=== PATIENT | female | born 1980 | race American Indian/Alaskan Native ===

== ENCOUNTER 2017-04-04 08:53 | Emergency (ER) | payer OTHER ==
[2017-04-04 09:11] VITALS: TEMP 99.8; O2SAT 100
--- NOTE | 2017-04-04 09:18 | ED PDOC ---
Arrival/HPI - General Chief Complaint: Flu-like Symptoms Time Seen by Provider: 04/04/17 09:05 Historian: Patient - History of Present Illness Narrative History of Present Illness (Text): 04/04/17 09:18 37 year old female, who denies any past medical history, presents to the emergency department complaining of waking up with a 103 fever associated with URI symptoms, generalized myalgias, and nonproductive cough. She denies any recent travel and also denies smoke, alcohol, or drug use. Patient denies any chills, chest pain, shortness of breath, nausea, vomiting, diarrhea, urinary symptoms, back pain, neck pain, rash, headache, dizziness, or any other complaints. PMD Dr. Celine Mathur Time/Duration: Other (1-2 hours ago) Symptom Onset: Sudden Symptom Course: Unchanged Activities at Onset: Rest Context: Home Associated Symptoms (Text): 04/04/17 10:05 Patient woke up this morning with a 103 fever and chills. Generalized myalgias and arthralgias with URI symptoms and a very mild nonproductive cough. No vomiting or diarrhea. No travel. She has not taken anything for the fever. Past Medical History - Provider Review Nursing Documentation Reviewed: Yes - Infectious Disease Hx of Infectious Diseases: None - Cardiac Hx Cardiac Disorders: No - Pulmonary Hx Respiratory Disorders: No - Neurological Hx Neurological Disorder: No - HEENT Hx HEENT Disorder: No - Renal Hx Renal Disorder: No - Endocrine/Metabolic Hx Endocrine Disorders: No - Hematological/Oncological Hx Blood Disorders: Yes Hx Sickle Cell Trait: Yes - Integumentary Hx Dermatological Disorder: No - Musculoskeletal/Rheumatological Hx Musculoskeletal Disorders: No - Gastrointestinal Hx Gastrointestinal Disorders: No - Genitourinary/Gynecological Hx Reproductive Disorders: Yes Other/Comment: HX: CERVICAL DYSPLAGIA - Psychiatric Hx Psychophysiologic Disorder: No Hx Substance Use: No - Surgical History Other/Comment: cervix - Anesthesia Hx Anesthesia: No Family/Social History - Physician Review Nursing Documentation Reviewed: Yes Family/Social History: No Known Family HX Smoking Status: Never Smoked Hx Alcohol Use: No Hx Substance Use: No Allergies/Home Meds Allergies/Adverse Reactions: Allergies No Known Allergies Allergy (Verified 04/04/17 09:12) Home Medications: Home Meds Medication Instructions Recorded Confirmed No Known Home Med 03/09/16 04/04/17 Review of Systems - Physician Review All systems were reviewed & negative as marked: Yes - Review of Systems Constitutional: Fatigue, Fevers. absent: Other (Chills) Respiratory: Cough. absent: SOB, Sputum, Wheezing Cardiovascular: absent: Chest Pain, Palpitations, Syncope Gastrointestinal: absent: Abdominal Pain, Diarrhea, Nausea, Vomiting Genitourinary Female: absent: Dysuria, Frequency, Hematuria Musculoskeletal: Myalgias. absent: Back Pain, Neck Pain Skin: absent: Rash Neurological: absent: Headache, Dizziness, Focal Weakness Physical Exam Vital Signs Reviewed: Yes Vital Signs Temp Pulse Resp BP Pulse Ox 04/04/17 10:15 99 H 16 140/66 100 04/04/17 09:24 99.8 F H 04/04/17 09:11 99.8 F H 105 H 18 143/77 100 Temperature: Afebrile Blood Pressure: Normal Pulse: Tachycardic Respiratory Rate: Normal Appearance: Positive for: Well-Appearing, Non-Toxic, Comfortable Pain Distress: None Mental Status: Positive for: Alert and Oriented X 3 - Systems Exam Head: Present: Atraumatic, Normocephalic Pupils: Present: PERRL Extroacular Muscles: Present: EOMI Conjunctiva: Present: Normal Ears: Present: NORMAL TM, Normal Canal. No: Erythema, TM Bulging Mouth: Present: Moist Mucous Membranes Pharnyx: No: ERYTHEMA, EXUDATE, TONSILS ENLARGED Neck: Present: Normal Range of Motion Respiratory/Chest: Present: Clear to Auscultation, Good Air Exchange. No: Respiratory Distress, Accessory Muscle Use Cardiovascular: Present: Regular Rate and Rhythm, Normal S1, S2. No: Murmurs Abdomen: Present: Normal Bowel Sounds. No: Tenderness, Distention, Peritoneal Signs Back: Present: Normal Inspection Upper Extremity: Present: Normal Inspection. No: Cyanosis, Edema Lower Extremity: Present: Normal Inspection. No: Edema Neurological: Present: GCS=15, CN II-XII Intact, Speech Normal, Motor Func Grossly Intact Skin: Present: Warm, Dry, Normal Color. No: Rashes Psychiatric: Present: Alert, Oriented x 3, Normal Insight, Normal Concentration Medical Decision Making ED Course and Treatment: 04/04/17 09:18 Impression: 27 year old female presents complaining of waking up with a 103 fever associated with URI symptoms, generalized myalgias, and nonproductive cough. Plan: -- Tylenol -- Influenza A B -- Reassess and disposition Progress Notes: 04/04/17 10:06 Influenza is negative. Patient will be treated symptomatically. Follow-up with PMD. Follow-up in the ER as needed. - Lab Interpretations Lab Results: Lab Results 04/04/17 09:20: Influenza Typ A,B (EIA) Negative for flu a/b - Medication Orders Current Medication Orders: Discontinued Medications Acetaminophen (Tylenol 325mg Tab) 975 mg PO STAT STA Stop: 04/04/17 09:17 Last Admin: 04/04/17 09:24 Dose: 975 mg MAR Pain/Vitals Document 04/04/17 09:24 SE (Rec: 04/04/17 09:24 SE [id number]) Sleep Is patient sleeping during reassessment? No Presence of Pain Presence of Pain Yes Pain Scale Used Pain Scale Used Numeric Vitals Temperature (97.6 F-99.6 F) 99.8 F Temperature Source Oral Disposition/Present on Arrival - Present on Arrival Any Indicators Present on Arrival: No History of DVT/PE: No History of Uncontrolled Diabetes: No Urinary Catheter: No History of Decub. Ulcer: No History Surgical Site Infection Following: None - Disposition Have Diagnosis and Disposition been Completed?: Yes Diagnosis: Fever, Viral syndrome Disposition: HOME/ ROUTINE Disposition Time: 10:06 Patient Plan: Discharge Condition: GOOD Discharge Instructions (ExitCare): Fever in Adults (ED), Viral Syndrome (ED) Additional Instructions: Symptomatic treatment. Tylenol or Advil as directed on bottle as needed. Follow- up with PMD. Follow up in ER as needed. Referrals: Rocío Mathur MD [Primary Care Provider] - Follow up with primary Forms: [employer] (Chinese), WORK NOTE
[2017-04-04 10:20] VITALS: BP 140/66; PULSE 99; RESP 16
== END 2017-04-04 10:17 | disposition home or self-care (01) ==
LOC: ED 08:53
DX: B34.9 Viral infection, unspecified (principal); R50.9 Fever, unspecified; D57.3 Sickle-cell trait

== ENCOUNTER 2017-11-15 12:44 | Emergency (ER) | payer OTHER ==
[2017-11-15 13:13] VITALS: TEMP 98.1; O2SAT 99
--- NOTE | 2017-11-15 15:24 | ED PDOC ---
Arrival/HPI - General Chief Complaint: Back Pain Time Seen by Provider: 11/15/17 14:46 Historian: Patient - History of Present Illness Narrative History of Present Illness (Text): 11/15/17 15:19 37yr old female presents today with left sided back/buttock pain. pt states pain started last night when she bent over to pick something up. pt states she took tylenol and motrin without improvement in the pain. pt states the pain radiates into the left leg. pt denies abdominal pain. no fever/chills. no urinary symptoms. She denies bladder or bowel incontinence. Patient denies saddle paresthesias. no cp or sob. no other complaints. pt denies any prior hx of back pain. pt states back pain is worse with any movement. Past Medical History - Provider Review Nursing Documentation Reviewed: Yes - Travel History Have you recently traveled outside [place] w/in the past 3 mons?: No - Infectious Disease Hx of Infectious Diseases: None - Reproductive Menopause: No - Cardiac Hx Cardiac Disorders: No - Pulmonary Hx Respiratory Disorders: No - Neurological Hx Neurological Disorder: No - HEENT Hx HEENT Disorder: No - Renal Hx Renal Disorder: No - Endocrine/Metabolic Hx Endocrine Disorders: No - Hematological/Oncological Hx Blood Disorders: Yes Hx Sickle Cell Trait: Yes - Integumentary Hx Dermatological Disorder: No - Musculoskeletal/Rheumatological Hx Musculoskeletal Disorders: No - Gastrointestinal Hx Gastrointestinal Disorders: No - Genitourinary/Gynecological Hx Reproductive Disorders: Yes Other/Comment: HX: CERVICAL DYSPLAGIA - Psychiatric Hx Psychophysiologic Disorder: No Hx Substance Use: No - Surgical History Other/Comment: cervix - Anesthesia Hx Anesthesia: No Family/Social History - Physician Review Nursing Documentation Reviewed: Yes Family/Social History: Unknown Family HX Smoking Status: Never Smoked Hx Alcohol Use: No Hx Substance Use: No Allergies/Home Meds Allergies/Adverse Reactions: Allergies No Known Allergies Allergy (Verified 04/04/17 09:12) Review of Systems - Review of Systems Constitutional: absent: Fatigue, Fevers Respiratory: absent: SOB, Cough Cardiovascular: absent: Chest Pain, Palpitations Gastrointestinal: absent: Abdominal Pain, Nausea, Vomiting Genitourinary Female: absent: Dysuria, Frequency, Hematuria Musculoskeletal: Arthralgias, Back Pain. absent: Neck Pain Skin: absent: Rash, Pruritis Neurological: absent: Headache, Dizziness Psychiatric: absent: Anxiety, Depression Physical Exam Vital Signs Reviewed: Yes Vital Signs Temp Pulse Resp BP Pulse Ox 11/15/17 13:09 98.1 F 99 H 18 139/82 99 Temperature: Afebrile Blood Pressure: Normal Pulse: Regular Respiratory Rate: Normal Appearance: Positive for: Well-Appearing, Non-Toxic, Comfortable Pain Distress: None Mental Status: Positive for: Alert and Oriented X 3 - Systems Exam Head: Present: Atraumatic Mouth: Present: Moist Mucous Membranes Neck: Present: Normal Range of Motion Respiratory/Chest: Present: Clear to Auscultation, Good Air Exchange. No: Respiratory Distress, Accessory Muscle Use Cardiovascular: Present: Regular Rate and Rhythm, Normal S1, S2. No: Murmurs Abdomen: No: Tenderness, Distention, Rebound, Guarding Back: Present: Normal Inspection, Pain with Leg Raise, Other (+ ttp over left sciatic foramen; stiff ROM of back). No: CVA Tenderness, Midline Tenderness, Paraspinal Tenderness Upper Extremity: Present: Normal ROM Lower Extremity: Present: Normal ROM Neurological: Present: GCS=15, Speech Normal Skin: Present: Warm, Dry, Normal Color. No: Rashes Psychiatric: Present: Alert, Oriented x 3 Medical Decision Making ED Course and Treatment: 11/15/17 15:25 Patient nontoxic well-appearing in no distress with stable vital signs. pt with sciatic foramen tenderness and back pain radiating into the left leg; likely sciatica. Toradol, Flexeril Patient reassessment: PT is feeling minimally better with medications; states pain went from 10 to 6. will add percocet and xray lumbar spine. xray LS spine; FINDINGS: BONES: Alignment appears satisfactory. No listhesis. No acute displaced fracture identified. Mild degenerative changes including small anterior osteophyte formation. Facet hypertrophy. DISC SPACES: Unremarkable. OTHER FINDINGS: Moderate constipation. Pelvic calcifications, likely phleboliths. IMPRESSION: Degenerative changes. No acute displaced fracture or subluxation identified. pt reassessment; Feeling better with medications ambulating with a steady gait. Muscle strength 5 out of 5 bilaterally. I advised to followup with the orthopedist within the next 2 days. Advised immediate return if symptoms worsen persist or if new concerning symptoms develop advised patient of constipation and need for increasing fluids and increasing fiber. Will discharge patient home with Colace capsules. Patient verbalizes understanding of discharge instructions and need for immediate followup. all aspects of this case were discussed the attending of record. Impression: Back pain Motrin every 6 hours as needed for pain Flexeril one tablet every 8 hours as needed for muscle spasms: May cause drowsiness percocet; one tablet every 6 hours as needed for moderate to severe pain: May cause drowsiness Colace; 1 capsule twice daily Increase fluids, increase fiber. Followup with the orthopedist within the next 2 days Followup with primary care physician within the next 2 days Return if symptoms worsen persist or if new symptoms develop - RAD Interpretation Radiology Orders: 11/15/17 16:34 LS SPINE WITH OBL > 18 YRS OLD [RAD] Stat - Medication Orders Current Medication Orders: Discontinued Medications Cyclobenzaprine HCl (Flexeril) 10 mg PO STAT STA Stop: 11/15/17 14:47 Last Admin: 11/15/17 15:37 Dose: 10 mg Ketorolac Tromethamine (Toradol) 60 mg IM STAT STA Stop: 11/15/17 14:47 Last Admin: 11/15/17 15:37 Dose: 60 mg MAR Pain Assessment Document 11/15/17 15:37 CORY (Rec: 11/15/17 15:38 COYR [id number]) Pain Reassessment Is this a pain reassessment? Yes Presence of Pain Presence of Pain Yes Pain Scale Used Pain Scale Used Numeric Location Left, Right or Bilateral Left Upper or Lower Lower Pain Location Body Site Back Description Description Sharp Intensity of Pain at present 10 IM Administration Charges Document 11/15/17 15:37 CORY (Rec: 11/15/17 15:38 CORY [id number]) Injection Site MAR Injection Site Left Deltoid Charges for Administration # of IM Administrations 1 Oxycodone/Acetaminophen (Percocet 5/325 Mg Tab) 1 tab PO STAT STA Stop: 11/15/17 16:35 Last Admin: 11/15/17 16:46 Dose: 1 tab MAR Pain Assessment Document 11/15/17 16:46 CORY (Rec: 11/15/17 16:47 CORY [id number]) Pain Reassessment Is this a pain reassessment? Yes Presence of Pain Presence of Pain Yes Pain Scale Used Pain Scale Used Numeric Location Upper or Lower Lower Pain Location Body Site Back Description Description Sharp Intensity of Pain at present 10 Disposition/Present on Arrival - Present on Arrival Any Indicators Present on Arrival: No History of DVT/PE: No History of Uncontrolled Diabetes: No Urinary Catheter: No History of Decub. Ulcer: No History Surgical Site Infection Following: None - Disposition Have Diagnosis and Disposition been Completed?: Yes Diagnosis: Back pain Disposition: HOME/ ROUTINE Disposition Time: 15:26 Patient Plan: Discharge Condition: GOOD Discharge Instructions (ExitCare): Low Back Pain (DC) Additional Instructions: Motrin every 6 hours as needed for pain Flexeril one tablet every 8 hours as needed for muscle spasms: May cause drowsiness percocet; one tablet every 6 hours as needed for moderate to severe pain: May cause drowsiness Colace; 1 capsule twice daily Increase fluids, increase fiber. Followup with the orthopedist within the next 2 days Followup with primary care physician within the next 2 days Return if symptoms worsen persist or if new symptoms develop Prescriptions: Cyclobenzaprine [Cyclobenzaprine HCl] 10 mg PO Q8 #10 tab Docusate [Colace] 100 mg PO BID #30 cap Ibuprofen [Motrin] 600 mg PO Q6H PRN #20 tab PRN Reason: pain/fever reduction oxyCODONE/Acetaminophen [Percocet 5/325 mg Tab] 1 tab PO Q6H PRN #6 tab PRN Reason: moderate to severe pain Referrals: Rocío Mathur MD [Primary Care Provider] - Follow up with primary Visco,Familia Parikh MD [Staff Provider] - Follow up with primary Forms: [employer] (Lithuanian), WORK NOTE
[2017-11-15] MEDS ORDERED: Oxycodone/Acetaminophen 5/325 mg Tab PO STA (16:34)
--- NOTE | 2017-11-15 17:29 | RAD ---
Date of service: 11/15/2017 PROCEDURE: Radiographs of the Lumbar Spine. HISTORY: back pain COMPARISON: None available. FINDINGS: BONES: Alignment appears satisfactory. No listhesis. No acute displaced fracture identified. Mild degenerative changes including small anterior osteophyte formation. Facet hypertrophy. DISC SPACES: Unremarkable. OTHER FINDINGS: Moderate constipation. Pelvic calcifications, likely phleboliths. IMPRESSION: Degenerative changes. No acute displaced fracture or subluxation identified.
[2017-11-15 17:56] VITALS: BP 142/84; PULSE 80; RESP 16
== END 2017-11-15 17:55 | disposition home or self-care (01) ==
LOC: ED 12:44
DX: M54.5 Low back pain (principal)
CPT/HCPCS: 72110; 96372; 99281; J1885

== ENCOUNTER 2018-02-21 09:39 | Inpatient (IN) | payer BC ==
[2018-02-21] MEDS ORDERED: Sodium Chloride 0.9% 1,000 ML IV STA (10:02)
--- NOTE | 2018-02-21 10:02 | ED PDOC ---
Arrival/HPI - General Chief Complaint: Chest Pain Time Seen by Provider: 02/21/18 09:45 Historian: Patient - History of Present Illness Narrative History of Present Illness (Text): 02/21/18 10:28 37 y/o female with no significant PMH presents to the ED c/o chest pain x 1 day. Chest pain is a substernal pressure worse with coughing and deep breathing. Associated sudden onset of generalized body aches, tactile fever, chills, pro ductive cough of yellow sputum and occasional blood, and headache yesterday. No OCP use, recent travel/immobilization/h/o DVT, PE, or malignancy. Denies flu shot. Positive sick contacts at work. Currently menstruating. Denies vision changes, dizziness, abdominal pain, N/V, SOB, urinary symptoms, calf pain, calf swelling, or any other associated symptoms. Past Medical History - Provider Review Nursing Documentation Reviewed: Yes - Infectious Disease Hx of Infectious Diseases: None - Reproductive Menopause: No - Cardiac Hx Cardiac Disorders: No - Pulmonary Hx Respiratory Disorders: No - Neurological Hx Neurological Disorder: No - HEENT Hx HEENT Disorder: No - Renal Hx Renal Disorder: No - Endocrine/Metabolic Hx Endocrine Disorders: No - Hematological/Oncological Hx Blood Disorders: Yes Hx Sickle Cell Trait: Yes - Integumentary Hx Dermatological Disorder: No - Musculoskeletal/Rheumatological Hx Musculoskeletal Disorders: No - Gastrointestinal Hx Gastrointestinal Disorders: No - Genitourinary/Gynecological Hx Reproductive Disorders: Yes Other/Comment: HX: CERVICAL DYSPLAGIA - Psychiatric Hx Psychophysiologic Disorder: No Hx Substance Use: No - Surgical History Other/Comment: cervix - Anesthesia Hx Anesthesia: No Family/Social History - Physician Review Nursing Documentation Reviewed: Yes Family/Social History: No Known Family HX Smoking Status: Never Smoked Hx Alcohol Use: No Hx Substance Use: No Allergies/Home Meds Allergies/Adverse Reactions: Allergies No Known Allergies Allergy (Verified 02/21/18 13:04) Home Medications: Home Meds Medication Instructions Recorded Confirmed No Known Home Med 02/21/18 02/21/18 Review of Systems - Physician Review All systems were reviewed & negative as marked: Yes - Review of Systems Constitutional: Fevers Eyes: Normal. absent: Vision Changes, Photophobia ENT: Normal. absent: Sore Throat, Sinus Congestion Respiratory: Cough, Sputum, Other (Hemoptysis). absent: SOB Cardiovascular: Chest Pain. absent: Palpitations, Calf Pain, Syncope Gastrointestinal: Normal. absent: Abdominal Pain, Constipation, Diarrhea, Nausea, Vomiting, Appetite Changes Genitourinary Female: Normal. absent: Dysuria, Frequency, Vaginal Bleeding, Vaginal Discharge Musculoskeletal: Normal. absent: Back Pain Skin: Normal. absent: Rash Neurological: Headache. absent: Dizziness, Focal Weakness, Gait Changes Endocrine: Normal Hemo/Lymphatic: Normal Psychiatric: Normal Physical Exam Vital Signs Reviewed: Yes Vital Signs Temp Pulse Resp BP 02/21/18 09:50 100.6 F H 108 H 13 140/81 Temperature: Febrile Blood Pressure: Normal Pulse: Tachycardic Respiratory Rate: Normal Appearance: Positive for: Well-Appearing, Non-Toxic, Comfortable Pain Distress: None Mental Status: Positive for: Alert and Oriented X 3 - Systems Exam Head: Present: Atraumatic, Normocephalic Pupils: Present: PERRL Extroacular Muscles: Present: EOMI Conjunctiva: Present: Normal Ears: Present: Normal, NORMAL TM, Normal Canal Mouth: Present: Moist Mucous Membranes Pharnyx: Present: Normal. No: ERYTHEMA, EXUDATE Neck: Present: Normal Range of Motion. No: Meningeal Signs, Paraspinal Tendern ess, Lymphadenopathy Respiratory/Chest: Present: Good Air Exchange, Wheezes (Right side). No: Respiratory Distress, Accessory Muscle Use Cardiovascular: Present: Regular Rate and Rhythm, Normal S1, S2, Peripheal Pulses Present. No: Murmurs Abdomen: Present: Normal Bowel Sounds. No: Tenderness, Distention, Peritoneal Signs, Rebound, Guarding Back: Present: Normal Inspection. No: CVA Tenderness, Paraspinal Tenderness Upper Extremity: Present: Normal Inspection, Normal ROM, NORMAL PULSES, Neurovascularly Intact, Capillary Refill < 2s. No: Cyanosis, Edema Lower Extremity: Present: Normal Inspection, NORMAL PULSES, Normal ROM, Neurovascularly Intact, Capillary Refill < 2 s. No: Edema, CALF TENDERNESS, Rashawn's Sign, Tenderness, Swelling Neurological: Present: GCS=15, CN II-XII Intact, Speech Normal, Motor Func Elieser ssly Intact, Normal Sensory Function, Gait Normal Skin: Present: Warm, Dry, Normal Color. No: Rashes Lymphatic: Present: Cervical Adenopathy Psychiatric: Present: Alert, Oriented x 3, Normal Insight, Normal Concentration, Normal Affect, Normal Mood Medical Decision Making ED Course and Treatment: Initial Plan: * CBC, CMP * Mg * Coags * Troponin * D-Dimer * EKG * CXR * IVF * ASA * Tylenol 10:35 Potassium 3.4, will give 20mEq potassium Dimer is elevated, will get CTA. Patient understands and agrees with plan of care. 11:30 CTA negative for pulmonary embolism or PNA. CXR: no active disease Case discussed with Dr. Washington who recommends admission to hospital with IV antibiotics and tamiflu with diagnosis of sepsis. Recommends no further diagnostic testing at this time. 12:00 Dr. Mathur accepted patient on to her service for inpatient admission to [facility] floor with diagnosis of sepsis and chest pain r/o ACS. Asking for 3 sets of troponin, and consults with Dr. Agustin, Dr. Sheikh, and Dr. Rojas. - Lab Interpretations Lab Results: 02/21/18 10:00 02/21/18 10:00 Lab Results 02/21/18 10:54: Troponin I < 0.01 02/21/18 10:00: Influenza Typ A,B (EIA) Negative for flu a/b 02/21/18 10:00: PT 12.3, INR 1.07, APTT 26.3, D-Dimer, Quantitative 659 H 02/21/18 10:00: Sodium 140, Potassium 3.4 L, Chloride 105, Carbon Dioxide 26, Anion Gap 13, BUN 9, Creatinine 0.7, Est GFR ( Amer) > 60, Est GFR (Non- Af Amer) > 60, Random Glucose 129 H, Calcium 9.1, Magnesium 1.8, Total Bilirubin 0.5, AST 24, ALT 21, Alkaline Phosphatase 62, Total Protein 7.8, Albumin 4.3, Globulin 3.5, Albumin/Globulin Ratio 1.2 02/21/18 10:00: WBC 20.4 H, RBC 4.51, Hgb 11.9 L, Hct 35.9 L, MCV 79.6 L, MCH 26.4, MCHC 33.1, RDW 13.9, Plt Count 385, MPV 9.4, Gran % 83.5 H, Lymph % (Auto) 11.4 L, [place] % (Auto) 4.1, Eos % (Auto) 0.9 L, Baso % (Auto) 0.1, Gran # 17.07 H , Lymph # (Auto) 2.3, [place] # (Auto) 0.8 H, Eos # (Auto) 0.2, Baso # (Auto) 0.03 02/21/18 09:54: Urine Color Yellow, Urine Appearance Clear, Urine pH 6.0, Ur Specific [place] 1.025, Urine Protein Negative, Urine Glucose (UA) Negative, Urine Ketones Negative, Urine Blood Large H, Urine Nitrate Negative, Urine Bilirubin Negative, Urine Urobilinogen 0.2, Ur Leukocyte Esterase Trace H, Urine RBC 5 - 10 H, Urine WBC 0 - 2, Ur Epithelial Cells 0 - 2, Urine Bacteria Neg I have reviewed the lab results: Yes - RAD Interpretation Narrative RAD Interpretations (Text): 02/21/18 11:32 CT Angio Chest, PE protocol: FINDINGS: PULMONARY ARTERIES: Unremarkable. No pulmonary embolism. AORTA: No acute findings. No thoracic aortic aneurysm. No aortic atherosclerotic calcification or mural plaque present. LUNGS: There is a 4.8 mm in non solid nodule at the right apex in image 24 series 4. No definite additional pulmonary nodules are identified. No infiltrates bilaterally. Central airways appear clear. PLEURAL SPACES: Unremarkable. No effusion or pneumothorax. HEART: Unremarkable. No cardiomegaly. No significant pericardial effusion. LYMPH NODES: No lymphadenopathy. BONES, CHEST WALL: Anterior wedging is mild at T8 likely reflecting limited compression fracture of indeterminate age. OTHER FINDINGS: Unremarkable. IMPRESSION: 1. No CT evidence of pulmonary embolus. 2. No infiltrate, pleural or pericardial effusion. 3. A small non solid nodule is seen at the right apex under 5 mm greatest dimension. Follow-up low-dose screening chest CT without contrast can be performed without contrast in 12 months demonstrate stability or resolution of this finding. Lung RADs 2 4. Mild anterior wedge compression fracture T8 of indeterminate age. Radiology Orders: 02/21/18 09:54 CHEST TWO VIEWS (PA/LAT) [RAD] Stat Support Team Member: Radiologist - EKG Interpretation EKG Interpretation (Text): Rate 110; Sinus tachycardia; Normal intervals; no STEMI or other signs of ischemia Interpreted by ED Physician: Yes (Dr. Washington) Type: 12 lead EKG Comparison: No previous EKG avail. - Medication Orders Current Medication Orders: Aspirin (Aspirin) 325 mg PO STAT STA Stop: 02/21/18 09:55 Disposition/Present on Arrival - Present on Arrival Any Indicators Present on Arrival: No History of DVT/PE: No History of Uncontrolled Diabetes: No Urinary Catheter: No History of Decub. Ulcer: No History Surgical Site Infection Following: None - Disposition Have Diagnosis and Disposition been Completed?: Yes Diagnosis: Sepsis, Chest pain Disposition: HOSPITALIZED Disposition Time: 12:00 Patient Plan: Admission Patient Problems: Current Active Problems Problem Status Onset Sepsis Acute Chest pain Acute Condition: STABLE
[2018-02-21 10:27] LABS: ALB/GLOB RATIO 1.2 (1.1-1.8); ALBUMIN 4.3 g/dL (3.0-4.8); ALT/SGPT 21 U/L (7-56); AST/SGOT 24 U/L (14-36); BASO # 0.03 K/mm3 (0.0-2.0); BASO % 0.1 % (0.0-3.0); BLOOD UREA NITROGEN 9 mg/dL (7-21); CALCIUM 9.1 mg/dL (8.4-10.5); EOS # 0.2 (0.0-0.7); EOS % 0.9 % (1.5-5.0); GFR NON-AFRICAN AMERICAN > 60; GRAN # 17.07 (1.4-6.5); GRAN % 83.5 % (50.0-68.0); HEMOGLOBIN 11.9 g/dL (12.0-16.0); LYMPH # 2.3 (1.2-3.4); LYMPH % 11.4 % (22.0-35.0); MEAN CELL VOLUME 79.6 fl (80.0-105.0); MEAN CORPUSCULAR HEMOGLOBIN 26.4 pg (25.0-35.0); MEAN CORPUSCULAR HGB CONC 33.1 g/dl (31.0-37.0); MEAN PLATELET VOLUME 9.4 fl (7.0-11.0); MONO # 0.8 (0.1-0.6); MONO % 4.1 % (1.0-6.0); RBC 4.51 10^6/uL (3.5-6.1); RED CELL DISTRIBUTION WIDTH 13.9 % (11.5-14.5); WHITE BLOOD COUNT 20.4 10^3/uL (4.5-11.0)
[2018-02-21] MEDS ORDERED: Potassium Chloride 20 mEq ER Tab PO STA (10:30)
[2018-02-21 10:32] LABS: INR 1.07; PARTIAL THROMBOPLASTIN TIME 26.3 Seconds (25.1-36.5); PROTHROMBIN TIME 12.3 SECONDS (9.4-12.5)
[2018-02-21] MEDS ORDERED: Iohexol 350 MG/100 ML VIAL ONE (10:39)
[2018-02-21 11:02] LABS: URINE BILIRUBIN NEGATIVE (NEGATIVE); URINE BLOOD LARGE (NEGATIVE); URINE GLUCOSE (UA) NEGATIVE (NEGATIVE); URINE LEUKOCYTE ESTERASE TRACE Leu/uL (NEGATIVE); URINE PROTEIN NEGATIVE mg/dL (<30 mg/dL); URINE UROBILINOGEN 0.2 E.U./dL (<1 E.U./dL)
[2018-02-21 11:06] LABS: URINE APPEARANCE CLEAR (CLEAR); URINE COLOR YELLOW (YELLOW)
[2018-02-21 11:09] LABS: URINE BACTERIA NEG /hpf; URINE EPITHELIAL CELLS 0 - 2 /hpf (0-5); URINE WBC 0 - 2 /hpf (0-6)
--- NOTE | 2018-02-21 11:29 | CT ---
Date of service: 02/21/2018 PROCEDURE: CT Chest with contrast (Pulmonary Angiogram) HISTORY: r/o PE, elevated dimer COMPARISON: None available. TECHNIQUE: Axial computed tomography images were obtained of the chest in the pulmonary arterial phase of enhancement. Coronal and sagittal reformatted images were created and reviewed. Intravenous contrast dose: Omnipaque 350, 100 cc. Radiation dose: Total exam DLP = 308.85 mGy-cm. This CT exam was performed using one or more of the following dose reduction techniques: Automated exposure control, adjustment of the mA and/or kV according to patient size, and/or use of iterative reconstruction technique. FINDINGS: PULMONARY ARTERIES: Unremarkable. No pulmonary embolism. AORTA: No acute findings. No thoracic aortic aneurysm. No aortic atherosclerotic calcification or mural plaque present. LUNGS: There is a 4.8 mm in non solid nodule at the right apex in image 24 series 4. No definite additional pulmonary nodules are identified. No infiltrates bilaterally. Central airways appear clear. PLEURAL SPACES: Unremarkable. No effusion or pneumothorax. HEART: Unremarkable. No cardiomegaly. No significant pericardial effusion. LYMPH NODES: No lymphadenopathy. BONES, CHEST WALL: Anterior wedging is mild at T8 likely reflecting limited compression fracture of indeterminate age. OTHER FINDINGS: Unremarkable. IMPRESSION: 1. No CT evidence of pulmonary embolus. 2. No infiltrate, pleural or pericardial effusion. 3. A small non solid nodule is seen at the right apex under 5 mm greatest dimension. Follow-up low-dose screening chest CT without contrast can be performed without contrast in 12 months demonstrate stability or resolution of this finding. Lung RADs 2 4. Mild anterior wedge compression fracture T8 of indeterminate age.
--- NOTE | 2018-02-21 11:42 | RAD ---
Date of service: 02/21/2018 HISTORY: chest pain, cough, r/o PNA COMPARISON: No prior. TECHNIQUE: Chest PA and lateral FINDINGS: LUNGS: No active pulmonary disease. PLEURA: No significant pleural effusion identified. No pneumothorax apparent. CARDIOVASCULAR: No aortic atherosclerotic calcification present. Normal cardiac size. No pulmonary vascular congestion. OSSEOUS STRUCTURES: No significant abnormalities. VISUALIZED UPPER ABDOMEN: Normal. OTHER FINDINGS: None. IMPRESSION: No acute cardiopulmonary disease appreciated.
[2018-02-21] MEDS ORDERED: levoFLOXacin 750 mg in D5W 750 MG/150 ML BAG IVPB STA (12:00)
[2018-02-21 14:56] VITALS: BMI 27.4
[2018-02-21] MEDS ORDERED: Pneumococcal 23-Valent Vaccine IM ONE (14:56)
[2018-02-21] MEDS ORDERED: Influenza Vaccine 60 mcg/0.5 mL SYR (4YR UP) IM ONE (14:56)
--- NOTE | 2018-02-21 18:58 | CON ---
DATE: 02/21/2018 REASON FOR CONSULTATION: Chest pain and cardiac evaluation. BRIEF CLINICAL HISTORY: This is a 37-year-old female with no significant past medical history, came in to the emergency room with complaint of chest pain 1 day, chest pain substernal and increases on taking a deep breath and coughing. The patient has associated fever, chills and cold feeling and bringing a cough and also bringing yellow color sputum, occasionally tinged with blood. No history of prior episode of chest pain. No dyspnea on exertion. No chest pain on exertion prior to this episode of fever, chills and cough. PAST MEDICAL HISTORY: Nothing significant. CURRENT MEDICATIONS: None. SURGICAL HISTORY: Nothing. SOCIAL HISTORY: Denies any smoking. Denies any history of alcohol abuse. MEDICATIONS: p.r.n. Tylenol. FAMILY HISTORY: Nothing significant. PHYSICAL EXAMINATION: VITAL SIGNS: Temperature 100.6, heart rate 108 and blood pressure 140/81. HEENT: PERRLA. Extraocular muscles intact. NECK: Supple. No carotid bruit or thyromegaly. CHEST: Clear to auscultation. HEART: S1 and S2 regular. ABDOMEN: Soft. EXTREMITIES: Clubbing and cyanosis negative. LABORATORY DATA: Blood workup; WBC 20.4, hemoglobin 11.9, hematocrit 35.9, and platelet count 385. Chemistry shows sodium 140, potassium 3.4, chloride 105, carbon dioxide 26, anion gap of , BUN 9, creatinine 0.9 and troponin 0.01. EKG done . IMPRESSION AND PLAN: A 37-year-old female with no significant past medical history, admitted with fever, cough, chills, sputum and chest pain most likely secondary to early pneumonia, but given multiple risk factor of coronary artery disease including prediabetic or diabetic because blood sugar 129, we will get echo and if the patient can tolerate a stress test depending upon the patient's condition, if remain afebrile, we will consider stress test tomorrow; otherwise, we will schedule as outpatient. We will get echo to assess left ventricular function, lipid profile, thyroid stimulating hormone, and hemoglobin A1C. Followup serial CPK, troponin. The patient to be seen and evaluated by Dr. Lau or Dr. Syed for flu or early pneumonia. We will follow with you. Thank you Dr. Mathur for providing us the opportunity in taking care of the patient, Isa Qiu. Edwin Espinoza MD
[2018-02-21] MEDS: Acetylcysteine 20% Inhal Soln (4ml) IH SCH (19:33)
[2018-02-21] MEDS: Arformoterol 15 mcg/2 ml Inh Sol IH SCH (19:33)
[2018-02-21] MEDS: Budesonide 0.5 mg/2 ml Inhal Susp UD IH SCH (19:33)
[2018-02-21] MEDS: MethylPREDNISolone 40 mg Vial IVP SCH (21:48)
--- NOTE | 2018-02-22 00:45 | CARD ---
APPROVED REPORT Date of service: 02/21/2018 EKG Measurement Heart [id number] <Conclusion> Sinus tachycardia Otherwise normal ECG
--- NOTE | 2018-02-22 01:19 | HP ---
DATE OF EXAM: 02/21/2018 CHIEF COMPLAINT: Chest pain. HISTORY OF PRESENT ILLNESS: Isa Qiu is 37-year-old female. Patient was seen and examined at the bedside on 02/21/2018. Ms. Isa Qiu is a 37-year-old female with no significant past medical history came in complaining of pain, one day chest pain. It is substernal. Pressure was with coughing and deep breathing associated with sudden onset of generalized body aches, tactile fever, chills, progressive cough of yellow sputum and occasionally blood . No recent travel. Denies flu shot. 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 Denies vision changes. PAST MEDICAL HISTORY: Sickle cell trait, status cervical dysphagia, dysplasia. FAMILY HISTORY: Father and mother noncontributory. HABITS: Never smoked. No drugs. No ethanol. ALLERGIC: THE PATIENT IS NOT ALLERGIC TO ANY MEDICATIONS. HOME MEDICATIONS: Reviewed by me. REVIEW OF SYSTEMS: The patient was seen and examined at bedside, looking comfortable. No fever. No chills. No headache or dizziness. No hematuria. No hematochezia. No dysuria. No vaginal bleeding or vaginal discharge. No back pain. PHYSICAL EXAMINATION: VITAL SIGNS: Temperature 100.6, pulse 108, respiratory rate 13, blood pressure 140/81. HEENT: Head is normocephalic, atraumatic. Eyes PERRLA. Extraocular muscles intact. Conjunctivae clear. Nose patent. Mucous membrane moist. NECK: Supple. No carotid bruit. No thyromegaly. CHEST: Bilateral symmetrical. HEART: S1 and S2 positive. LUNGS: Clear to auscultation. ABDOMEN: Soft. Bowel sounds positive. No organomegaly. EXTREMITIES: No edema. No cyanosis. NEUROLOGIC: The patient is awake, alert, moving all 4 extremities. No focal deficits. LABORATORY DATA: White blood cell 20.4, hemoglobin 11.6, hematocrit 35.9, and platelets 318. Sodium 140, potassium 3.4, BUN noted Glucose 129. ASSESSMENT AND PLAN: Ms. Isa Qiu is 37-year-old lady with leukocytosis, anemia, hypokalemia, hyperglycemia. CAT scan of the chest done, no infiltrate or pleural effusion, small amount of was seen at the right apex 5 mm greater , CAT scan performed without contrast in 12 months. Mild anterior wedge compression fracture T8 of undetermined etiology. The patient has sepsis, chest pain. Rule out flu. The patient has no significant past medical history. Chest x-ray and CAT scan of the chest was reviewed by me. Seen by the wax engraver. Rule out sepsis. ID consult to rule out pneumonia. Diabetic diet ordered. Echo ordered. Repeat labs. Gastrointestinal prophylaxis. We will followup. Rocío Mathur MD MTDD
[2018-02-22] MEDS: MethylPREDNISolone 40 mg Vial IVP SCH ×2 (06:04→21:39)
[2018-02-22] MEDS: Pantoprazole 40 mg EC Tab PO SCH (06:04)
[2018-02-22 06:25] LABS: BASO # 0.01 K/mm3 (0.0-2.0); BASO % 0.1 % (0.0-3.0); GRAN # 14.74 (1.4-6.5); GRAN % 92.8 % (50.0-68.0); HEMOGLOBIN 11.8 g/dL (12.0-16.0); LYMPH % 6.2 % (22.0-35.0); MEAN CELL VOLUME 79.3 fl (80.0-105.0); MEAN CORPUSCULAR HEMOGLOBIN 26.2 pg (25.0-35.0); MEAN CORPUSCULAR HGB CONC 33.1 g/dl (31.0-37.0); MEAN PLATELET VOLUME 9.3 fl (7.0-11.0); MONO # 0.1 (0.1-0.6); MONO % 0.9 % (1.0-6.0); PLATELET COUNT 372 10^3/uL (120.0-450.0); RED CELL DISTRIBUTION WIDTH 14.2 % (11.5-14.5); WHITE BLOOD COUNT 15.9 10^3/uL (4.5-11.0)
[2018-02-22 06:37] LABS: IRON 32 ug/dL (45-180)
[2018-02-22 06:54] LABS: TROPONIN I < 0.01 ng/mL
[2018-02-22 06:59] LABS: % IRON SATURATION 8 % (20-55); TOTAL IRON BINDING CAPACITY 385 ug/dL (265-497)
[2018-02-22 07:14] LABS: HDL CHOLESTEROL 47 mg/dL (29-60)
[2018-02-22 07:25] LABS: LDL CHOLESTEROL 102 mg/dL (0-129)
[2018-02-22 07:27] LABS: LDL CHOLESTEROL 104 mg/dL (0-129)
[2018-02-22 07:29] LABS: ALB/GLOB RATIO 1.2 (1.1-1.8); ALBUMIN 4.2 g/dL (3.0-4.8); ALT/SGPT 22 U/L (7-56); AST/SGOT 23 U/L (14-36); BLOOD UREA NITROGEN 10 mg/dL (7-21); CALCIUM 9.4 mg/dL (8.4-10.5); GFR NON-AFRICAN AMERICAN > 60; HDL CHOLESTEROL 48 mg/dL (29-60)
[2018-02-22 07:48] LABS: LYMPHOCYTE 8 % (22.0-35.0); MONOCYTE 1 % (1.0-6.0); NEUTROPHIL 91 % (50.0-70.0); PLATELET ESTIMATE NORMAL (NORMAL)
--- NOTE | 2018-02-22 08:30 | CP.PCM.PN ---
Subjective - Date & Time of Evaluation Date of Evaluation: 02/22/18 Time of Evaluation: 06:45 - Subjective Subjective: Awake, alert, feels better, denies shortness of breath Reason for consultation and follow up:Cardiac evaluation of chest pain, history of asthma Seen and examined by me and Dr. Espinoza Objective - Vital Signs/Intake and Output Vital Signs (last 24 hours): Temp Pulse Resp BP Pulse Ox 97.6 F 84 18 106/64 97 02/21/18 16:47 02/22/18 06:00 02/21/18 16:47 02/21/18 16:47 02/21/18 16:47 Intake and Output: 02/22/18 02/22/18 06:59 18:59 Intake Total 780 Balance 780 - Medications Medications: Current Medications Acetylcysteine (Acetylcysteine 20%) 4 ml IH BIDRESP SAMI Last Admin: 02/21/18 19:33 Dose: 4 ml Arformoterol Tartrate (Brovana) 15 mcg IH [id number] SAMI Last Admin: 02/21/18 19:33 Dose: 15 mcg Budesonide (Pulmicort Respules) 0.5 mg IH [id number] SAMI Last Admin: 02/21/18 19:33 Dose: 0.5 mg Doxycycline Hyclate (Doryx) 100 mg PO Q12 SAMI; Protocol Last Admin: 02/21/18 21:48 Dose: 100 mg Enoxaparin Sodium (Lovenox) 40 mg SC DAILY SAMI; Protocol Ceftriaxone Sodium (Rocephin 1 Gram Ivpb) 1 gm in 100 mls @ 100 mls/hr IVPB DAILY SAMI; Protocol Ibuprofen (Motrin Tab) 400 mg PO Q6H PRN PRN Reason: Pain, moderate (4-7) Last Admin: 02/21/18 19:57 Dose: 400 mg Methylprednisolone (Solu-Medrol) 40 mg IVP Q8 SAMI Last Admin: 02/22/18 06:04 Dose: 40 mg Oseltamivir Phosphate (Tamiflu Cap) 75 mg PO BID SAMI; Protocol Stop: 02/26/18 12:28 Last Admin: 02/21/18 17:31 Dose: 75 mg Pantoprazole Sodium (Protonix Ec Tab) 40 mg PO 0600 SAMI Last Admin: 02/22/18 06:04 Dose: 40 mg - Labs Labs: 02/22/18 06:00 02/22/18 06:00 PT 12.3 SECONDS (9.4-12.5) 02/21/18 10:00 INR 1.07 02/21/18 10:00 APTT 26.3 Seconds (25.1-36.5) 02/21/18 10:00 - Constitutional Appears: Non-toxic, No Acute Distress - Head Exam Head Exam: NORMAL INSPECTION, NORMOCEPHALIC - Eye Exam Eye Exam: Normal appearance Pupil Exam: NORMAL ACCOMODATION - ENT Exam ENT Exam: Mucous Membranes Moist, Normal Exam - Respiratory Exam Respiratory Exam: Decreased Breath Sounds, NORMAL BREATHING PATTERN - Cardiovascular Exam Cardiovascular Exam: +S1, +S2 - GI/Abdominal Exam GI & Abdominal Exam: Soft, Normal Bowel Sounds - Extremities Exam Extremities Exam: Full ROM, Normal Capillary Refill - Neurological Exam Neurological Exam: Alert, Awake, Oriented x3 - Psychiatric Exam Psychiatric exam: Normal Affect, Normal Mood - Skin Skin Exam: Dry, Normal Color, Warm Assessment and Plan - Assessment and Plan (Free Text) Assessment: A 37 year old female who came in to the ER due to chest pain substernal pressure worse on coughing and deep breathing, associated with generalized body aches, fever, chills, productive cough of yellow sputum and headache. History of asthma. Denies smoking. Chest X ray-normal, Troponin normal x 3. CT of chest, negative for infiltrate. Rule out myocardial infarction. Rule out congestive heart failure. Rule out flu. For Echo today. Plan: Feels better Denies shortness of breath Heart rate controlled Blood pressure controlled Cardiac status stable For echo today to evaluate LV function On Doryx 100 mg BID,Rocephin 1 gram daily,Solumedrol 40 mg every 8 hours, Tamiflu 75 mg BID Continue current treatment Continue current medications Will follow up Plan and treatment discussed with Dr. Espinoza
--- NOTE | 2018-02-22 08:32 | CON ---
DATE: 02/21/2018 PULMONARY CONSULTATION REFERRING PHYSICIAN: Dr. Mathur. REASON FOR CONSULTATION: Cough, shortness of breath, history of asthma. HISTORY OF PRESENT ILLNESS: This is a 37 years old female with known history of childhood asthma. Apparently for last two days been having rhinitis, cough, shortness of breath, started wheezing with discolored sputum; comes to emergency room where had a CTA done, which shows no pulmonary embolism but positive for small upper lobe nodule. She admits to have snoring, daytime sleepy and tired. No nausea, no vomiting, diarrhea, leg pain or leg swelling. Denies any severe headache. PAST MEDICAL HISTORY: Again significant for childhood asthma, also has a history of sickle cell trait, history of cervical dysplasia. FAMILY HISTORY: No significant cardiopulmonary disease reported. SOCIAL HISTORY: Denies any smoking or alcohol use. ALLERGIES: NONE KNOWN. MEDICATIONS: She is on Mucomyst 20% inhaled twice a day, also Brovana inhaled twice a day, doxycycline 100 mg being started, Lovenox 40 mg daily, Protonix 40 mg daily, Pulmicort inhaled twice a day, Rocephin 1 g daily, Solu-Medrol at 40 mg every 8 hours, Tamiflu 75 mg twice a day. REVIEW OF SYSTEMS: No headache. Has some rhinitis, cough, shortness of breath. No chest pain. No nausea, vomiting, diarrhea, leg pain or leg swelling. PHYSICAL EXAMINATION: GENERAL: Mild distress secondary to cough and shortness of breath. VITAL SIGNS: Temp is 100.6, heart rate is 96, respiratory rate is 18, blood pressure 115/75, pulse ox 97% on room air. HEENT: Moist mucous membrane. Crowded airway. Mallampati score is about 3. No maxillary area tenderness. Has submandibular area tenderness. LUNGS: Have bilateral expiratory wheezing. HEART: S1 and S2. ABDOMEN: Soft, nontender. No organomegaly. EXTREMITIES: No edema. NEUROLOGIC: Awake and follows simple commands. LABORATORY DATA: Shows hemoglobin 11.9, hematocrit 35.9, WBC 20,000, platelet is 385. INR 1.07. PTT is 26. D-dimer was 659. Sodium 140, potassium 3.4, chloride 105, bicarbonate 26, BUN 9, creatinine 0.7, glucose 129, calcium 9.1, magnesium 1.8. Total bili 0.5, AST 24, ALT 21, alk phos is 62. Troponin less than 0.01. Albumin is 4.3. Urinalysis shows urine has some large blood, urine rbc 5-10. Influenza A and B antibodies negative. IMPRESSION AND PLAN: Exacerbation of chronic obstructive lung disease, probably triggered with viral illness, has a small lung nodule. Continue antibiotics. Gastric prophylaxis, deep venous thrombosis prophylaxis, steroids, inhaled bronchodilator. May have sleep apnea syndrome. Avoid sedatives. We will recommend PFT as well as attended sleep study upon discharge as outpatient. Thank you and we will follow with you. Edwin Agustin MD
[2018-02-22] MEDS: Budesonide 0.5 mg/2 ml Inhal Susp UD IH SCH ×2 (09:10→19:45)
[2018-02-22] MEDS: Acetylcysteine 20% Inhal Soln (4ml) IH SCH ×2 (09:10→19:44)
[2018-02-22] MEDS: Arformoterol 15 mcg/2 ml Inh Sol IH SCH ×2 (09:10→19:45)
[2018-02-22] MEDS: Enoxaparin 40 mg Syringe SC SCH (10:14)
[2018-02-22] MEDS: cefTRIAXone 1 gm 1 GM/100 ML BAG IVPB SCH (10:14)
--- NOTE | 2018-02-22 12:48 | CARD ---
APPROVED REPORT Date of service: 02/22/2018 EXAM: Two-dimensional and M-mode echocardiogram with Doppler and color Doppler. INDICATION Chest Pain 2D DIMENSIONS Left Atrium (2D)3.2 (1.6-4.0cm)IVSd1.2 (0.7-1.1cm) LVDd4.0 (3.9-5.9cm)PWd1.0 (0.7-1.1cm) LVDs2.3 (2.5-4.0cm)FS (%) 41.5 % LVEF (%)73.0 (>50%) M-Mode DIMENSIONS Aortic Root2.40 (2.2-3.7cm)Aortic Cusp Exc.1.40 (1.5-2.0cm) Aortic Valve AoV Peak Lekqjszn078.0cm/Hansel Peak GR.7mmHg Mitral Valve MV E Sckiogyz65.8cm/sMV A Ycsuqfwo601.0cm/sE/A ratio0.6 TDI E/Lateral E'0.0E/Medial E'0.0 Tricuspid Valve TR Peak [id number]/sRAP [id number] Peak Gr.9mmHg [id number] LEFT VENTRICLE The left ventricle is normal size. There is borderline concentric left ventricular hypertrophy. Proximal septal thickening is noted. The left ventricular function is normal.EF-65% There is normal LV segmental wall motion. Transmitral Doppler flow pattern is Grade III-reversible restrictive diastolic dysfunction. No left ventricle thrombus noted on this study. There is no ventricular septal defect visualized. There is no left ventricular aneurysm. There is no mass noted in the left ventricle. RIGHT VENTRICLE The right ventricle is normal size. There is normal right ventricular wall thickness. The right ventricular systolic function is normal. ATRIA The left atrium size is normal. The right atrium size is normal. The interatrial septum is intact with no evidence for an atrial septal defect. AORTIC VALVE The aortic valve is thickened but opens well. No aortic regurgitation is present. There is no aortic valvular stenosis. There is no aortic valvular vegetation. MITRAL VALVE The mitral valve is normal in structure. There is no mitral valve regurgitation noted. There is no mitral valve stenosis. There is no evidence of mitral valve prolapse. TRICUSPID VALVE The tricuspid valve leaflets are thickened , but open well. There is trace tricuspid regurgitation.RVSP-19 mmof hg. There is no tricuspid valve stenosis. There is no tricuspid valve prolapse or vegetation. PULMONIC VALVE The pulmonary valve is normal in structure. There is no pulmonic valvular regurgitation. There is no pulmonic valvular stenosis. GREAT VESSELS The aortic root is normal in size. The ascending aorta is normal in size. The pulmonary artery is normal. The IVC is normal in size and collapses >50% with inspiration. PERICARDIAL EFFUSION There is no pleural effusion. There is no pericardial effusion. <Conclusion> Normal chamber size. EF-65% There is trace tricuspid regurgitation.RVSP-19 mmof hg. The IVC is normal in size and collapses >50% with inspiration. There is no pericardial effusion. No vegetation or thrombus noted
[2018-02-22 12:54] LABS: FOLATE 6.4 ng/mL
--- NOTE | 2018-02-22 13:04 | PN ---
DATE: 02/22/2018 PULMONARY PROGRESS NOTE REFERRING PHYSICIAN: Rocío Mathur MD SUBJECTIVE: The patient is sitting up in bed. No acute distress. Reports feeling slightly better this morning. No headache, rhinitis, chest pain, abdominal pain, nausea, vomiting, diarrhea, leg pain or leg swelling reported. Reports some improvement in shortness of breath and coughing. OBJECTIVE: GENERAL: No acute distress. VITAL SIGNS: Blood pressure 118/77, pulse 73, temperature 97.6, and oxygen saturation 97%. HEENT: Moist mucous membranes. Crowded airway. Mallampati score of 4. Submandibular area tenderness. LUNGS: No audible wheezing. Few rhonchi bilaterally. CARDIOVASCULAR: S1 and S2 audible. ABDOMEN: Soft and nontender. No distention. No organomegaly. EXTREMITIES: No bilateral lower extremity edema. NEUROLOGIC: Awake, alert and verbal. Follows commands. MEDICATIONS: Reviewed. Mucomyst 4 mL inhalation twice a day, Brovana 15 mcg every 2 hours, Pulmicort 0.5 mg every 12 hours, Rocephin 1 g daily, doxycycline 100 mg every 12 hours, Lovenox 40 mg daily, Motrin 400 mg every 6 hours p.r.n. for moderate pain, Solu-Medrol 40 mg every 8 hours, Tamiflu 75 mg twice a day and Protonix 40 mg daily. LABORATORY DATA: WBC 15.9, .hemoglobin 11.8, hematocrit 35.7 and platelets 372. Sodium 139, potassium 4.2, chloride 107, carbon dioxide 25, anion gap 11, BUN 10, creatinine 0.6, GFR greater than 60, random glucose 166, calcium 9.4, phosphors 3.3 and magnesium 2.0. Iron 32, TIBC 385 and percent saturation 8. Total bilirubin 0.3, AST 23, ALT 22, alkaline phosphatase 62, lactate dehydrogenase 277, total creatine kinase 73, troponin , total protein 7.6, albumin 4.2, globulin 3.4 and albumin-globulin ratio 1.2. Triglycerides 43, cholesterol 165, LDL cholesterol direct 102 and HDL cholesterol 47. TSH 0.13. HIV 1 and 2 antigen-antibody nonreactive. Urine culture final, no growth, less than 1000. IMPRESSION AND PLAN: Exacerbation of chronic obstructive lung disease, probably triggered by viral illness, has a small lung nodule. Gastric prophylaxis, deep venous thrombosis prophylaxis, continue antibiotic therapy. We will decrease Solu-Medrol to 40 mg every 12 hours, continue inhaled bronchodilators, may have sleep apnea syndrome, avoid sedatives. Sleep apnea precaution. HOB elevated 45 degrees. We recommend the patient have attended sleep study and full PFT as outpatient. The patient is scheduled to have an echo done today. This patient was seen and examined with Dr. Agustin. Discussed assessment and plan as described above. Thank you for this consult and we will follow with you. Lisandro PrPEEWEE cuenca Edwin Agustin MD MATIAS
--- NOTE | 2018-02-22 13:07 | CP.PCM.CON ---
History of Present Illness - History of Present Illness History of Present Illness: 37 year old female with no significant past medical history came in to [facility] [place] complaining of chest pain associated with cough with some phlegm for the past 1- 2 days. She also started having generalized body aches as well as subjective fever and chills. She states that she has sick contacts in her workplace and they have been having cough. She denies headache or dizziness, some sore throat, no rhinorrhea, no abdominal pain, no dysphagia, no diarrhea, no dysuria. In the ED, she was also noted to have leukocytosis. Infectious Diseases consult is requested to further evaluate and manage. Review of Systems - Review of Systems All systems: reviewed and no additional remarkable complaints except (as per HPI) Past Patient History - Infectious Disease Hx of Infectious Diseases: None - Past Medical History & Family History Past Medical History?: Yes - Past Social History Smoking Status: Never Smoked - CARDIAC Hx Cardiac Disorders: No - PULMONARY Hx Respiratory Disorders: No - NEUROLOGICAL Hx Neurological Disorder: No - HEENT Hx HEENT Problems: No - RENAL Hx Chronic Kidney Disease: No - ENDOCRINE/METABOLIC Hx Endocrine Disorders: No - HEMATOLOGICAL/ONCOLOGICAL Hx Blood Disorders: Yes - INTEGUMENTARY Hx Dermatological Problems: No - MUSCULOSKELETAL/RHEUMATOLOGICAL Hx Musculoskeletal Disorders: No - GASTROINTESTINAL Hx Gastrointestinal Disorders: No - GENITOURINARY/GYNECOLOGICAL Hx Reproductive Disorders: Yes Other/Comment: HX: CERVICAL DYSPLAGIA - PSYCHIATRIC Hx Psychophysiologic Disorder: No Hx Substance Use: No - SURGICAL HISTORY Other/Comment: cervix - ANESTHESIA Hx Anesthesia: No Meds Allergies/Adverse Reactions: Allergies Allergy/AdvReac Type Severity Reaction Status Date / Time No Known Allergies Allergy Verified 02/21/18 13:04 - Medications Medications: Current Medications Acetylcysteine (Acetylcysteine 20%) 4 ml IH BIDRESP SAMI Last Admin: 02/21/18 19:33 Dose: 4 ml Arformoterol Tartrate (Brovana) 15 mcg IH [id number] SAMI Last Admin: 02/21/18 19:33 Dose: 15 mcg Budesonide (Pulmicort Respules) 0.5 mg IH [id number] SAMI Last Admin: 02/21/18 19:33 Dose: 0.5 mg Doxycycline Hyclate (Doryx) 100 mg PO Q12 SAMI; Protocol Last Admin: 02/21/18 21:48 Dose: 100 mg Enoxaparin Sodium (Lovenox) 40 mg SC DAILY SAMI; Protocol Ceftriaxone Sodium (Rocephin 1 Gram Ivpb) 1 gm in 100 mls @ 100 mls/hr IVPB DAILY SAMI; Protocol Ibuprofen (Motrin Tab) 400 mg PO Q6H PRN PRN Reason: Pain, moderate (4-7) Last Admin: 02/21/18 19:57 Dose: 400 mg Methylprednisolone (Solu-Medrol) 40 mg IVP Q8 [facility]I Last Admin: 02/22/18 06:04 Dose: 40 mg Oseltamivir Phosphate (Tamiflu Cap) 75 mg PO BID [facility]I; Protocol Stop: 02/26/18 12:28 Last Admin: 02/21/18 17:31 Dose: 75 mg Pantoprazole Sodium (Protonix Ec Tab) 40 mg PO 0600 [facility]I Last Admin: 02/22/18 06:04 Dose: 40 mg Physical Exam - Constitutional Appears: Chronically Ill - Head Exam Head Exam: NORMAL INSPECTION - Neck Exam Neck exam: Negative for: Meningismus - Respiratory Exam Respiratory Exam: Decreased Breath Sounds - Cardiovascular Exam Cardiovascular Exam: +S1, +S2 - GI/Abdominal Exam GI & Abdominal Exam: Soft. absent: Tenderness Results - Vital Signs Recent Vital Signs: Last Vital Signs Temp 97.6 F 02/21/18 16:47 Pulse 84 02/22/18 06:00 Resp 18 02/21/18 16:47 BP 106/64 02/21/18 16:47 Pulse Ox 97 02/21/18 16:47 - Labs Result Diagrams: 02/22/18 06:00 02/22/18 06:00 Labs: Laboratory Results - last 24 hr 02/21/18 02/21/18 02/21/18 09:54 10:00 10:00 WBC 20.4 H RBC 4.51 Hgb 11.9 L Hct 35.9 L MCV 79.6 L MCH 26.4 MCHC 33.1 RDW 13.9 Plt Count 385 MPV 9.4 Gran % 83.5 H Lymph % (Auto) 11.4 L [place] % (Auto) 4.1 Eos % (Auto) 0.9 L Baso % (Auto) 0.1 Gran # 17.07 H Lymph # (Auto) 2.3 [place] # (Auto) 0.8 H Eos # (Auto) 0.2 Baso # (Auto) 0.03 PT INR APTT D-Dimer, Quantitative Sodium 140 Potassium 3.4 L Chloride 105 Carbon Dioxide 26 Anion Gap 13 BUN 9 Creatinine 0.7 Est GFR ( Amer) > 60 Est GFR (Non-Af Amer) > 60 Random Glucose 129 H Calcium 9.1 Magnesium 1.8 Iron Total Bilirubin 0.5 AST 24 ALT 21 Alkaline Phosphatase 62 Troponin I Total Protein 7.8 Albumin 4.3 Globulin 3.5 Albumin/Globulin Ratio 1.2 Urine Color Yellow Urine Appearance Clear Urine pH 6.0 Ur Specific Hines 1.025 Urine Protein Negative Urine Glucose (UA) Negative Urine Ketones Negative Urine Blood Large H Urine Nitrate Negative Urine Bilirubin Negative Urine Urobilinogen 0.2 Ur Leukocyte Esterase Trace H Urine RBC 5 - 10 H Urine WBC 0 - 2 Ur Epithelial Cells 0 - 2 Urine Bacteria Neg Influenza Typ A,B (EIA) 02/21/18 02/21/18 02/21/18 10:00 10:00 10:54 WBC RBC Hgb Hct MCV MCH MCHC RDW Plt Count MPV Gran % Lymph % (Auto) [place] % (Auto) Eos % (Auto) Baso % (Auto) Gran # Lymph # (Auto) [place] # (Auto) Eos # (Auto) Baso # (Auto) PT 12.3 INR 1.07 APTT 26.3 D-Dimer, Quantitative 659 H Sodium Potassium Chloride Carbon Dioxide Anion Gap BUN Creatinine Est GFR ( Amer) Est GFR (Non-Af Amer) Random Glucose Calcium Magnesium Iron Total Bilirubin AST ALT Alkaline Phosphatase Troponin I < 0.01 Total Protein Albumin Globulin Albumin/Globulin Ratio Urine Color Urine Appearance Urine pH Ur Specific [place]ines Urine Protein Urine Glucose (UA) Urine Ketones Urine Blood Urine Nitrate Urine Bilirubin Urine Urobilinogen Ur Leukocyte Esterase Urine RBC Urine WBC Ur Epithelial Cells Urine Bacteria Influenza Typ A,B (EIA) Negative for flu a/b 02/21/18 02/22/18 02/22/18 19:10 06:00 06:00 WBC 15.9 H D RBC 4.50 Hgb 11.8 L Hct 35.7 L MCV 79.3 L MCH 26.2 MCHC 33.1 RDW 14.2 Plt Count 372 MPV 9.3 Gran % 92.8 H Lymph % (Auto) 6.2 L [place] % (Auto) 0.9 L Eos % (Auto) 0.0 L Baso % (Auto) 0.1 Gran # 14.74 H Lymph # (Auto) 1.0 L [place] # (Auto) 0.1 Eos # (Auto) 0.0 Baso # (Auto) 0.01 PT INR APTT D-Dimer, Quantitative Sodium Potassium Chloride Carbon Dioxide Anion Gap BUN Creatinine Est GFR ( Amer) Est GFR (Non-Af Amer) Random Glucose Calcium Magnesium Iron 32 L Total Bilirubin AST ALT Alkaline Phosphatase Troponin I < 0.01 Total Protein Albumin Globulin Albumin/Globulin Ratio Urine Color Urine Appearance Urine pH Ur Specific [place] Urine Protein Urine Glucose (UA) Urine Ketones Urine Blood Urine Nitrate Urine Bilirubin Urine Urobilinogen Ur Leukocyte Esterase Urine RBC Urine WBC Ur Epithelial Cells Urine Bacteria Influenza Typ A,B (EIA) Assessment & Plan - Assessment and Plan (Free Text) Plan: Assessment Systemic inflammatory response syndrome, consider due to systemic viral illness R/O Influenza on top of acute bronchitis Plan started Tamiflu as well as Rocephin and Doxycycline pending blood, sputum cx, PCT reviewed CT chest which does not show infiltrates - it shows a small pulmonary nodule - PMD to follow this up will monitor clinically, trend WBC count and fever curve
--- NOTE | 2018-02-22 13:44 | PN ---
DATE: 02/22/2018 REASON FOR CONSULTATION: Chest pain. This note in addition was dictated by nurse practitioner, Susu Santos. This is a 37-year-old female who came to the emergency room with complaints of chest pain and coughing. So far troponin remains negative, possibly early in the morning though. Chest x-ray and CAT scan were negative, but the patient had a flu-like symptoms on isolation. Recommended to get echo. Continue antibiotic as per ID and Pulmonary. We will schedule a stress test in 3 to 4 weeks. Demographic was given to Cardiology to schedule the stress test outpatient, also discussed the patient. The patient will be scheduled on 03/16/2017 for a stress result as an outpatient. We will follow with you. So far, CVS status is stable and no evidence of acute [place], troponin remains negative. Thank you Dr. Mathur for providing this opportunity in taking care of the patient, Isa Qiu. Edwin Espinoza MD
[2018-02-22 16:55] VITALS: RESP 20
[2018-02-23] MEDS: Pantoprazole 40 mg EC Tab PO SCH (05:22)
[2018-02-23 06:42] LABS: HEMOGLOBIN 11.3 g/dL (12.0-16.0); MEAN CELL VOLUME 79.4 fl (80.0-105.0); MEAN CORPUSCULAR HEMOGLOBIN 26.2 pg (25.0-35.0); MEAN PLATELET VOLUME 9.8 fl (7.0-11.0); RBC 4.31 10^6/uL (3.5-6.1); RED CELL DISTRIBUTION WIDTH 14.1 % (11.5-14.5); WHITE BLOOD COUNT 23.7 10^3/uL (4.5-11.0)
[2018-02-23 06:59] VITALS: BP 110/60; PULSE 78; TEMP 98; O2SAT 96
--- NOTE | 2018-02-23 07:07 | CP.PCM.PN ---
Subjective - Date & Time of Evaluation Date of Evaluation: 02/23/18 Time of Evaluation: 06:35 - Subjective Subjective: Awake, alert, denies shortness of breath, lying in bed Reason for consultation and follow up: Cardiac evaluation of chest pain, history of asthma Seen and examined by me and Dr. Espinoza Objective - Vital Signs/Intake and Output Vital Signs (last 24 hours): Temp Pulse Resp BP Pulse Ox 98.0 F 78 20 110/60 96 02/23/18 06:00 02/23/18 06:00 02/23/18 06:00 02/23/18 06:00 02/23/18 06:00 Intake and Output: 02/23/18 02/23/18 06:59 18:59 Intake Total 480 Balance 480 - Medications Medications: Current Medications Acetylcysteine (Acetylcysteine 20%) 4 ml IH BIDRESP [facility] Last Admin: 02/22/18 19:44 Dose: Not Given Arformoterol Tartrate (Brovana) 15 mcg IH [id number] SAMI Last Admin: 02/22/18 19:45 Dose: 15 mcg Budesonide (Pulmicort Respules) 0.5 mg IH [id number] SAMI Last Admin: 02/22/18 19:45 Dose: 0.5 mg Doxycycline Hyclate (Doryx) 100 mg PO Q12 SAMI; Protocol Last Admin: 02/22/18 21:37 Dose: 100 mg Enoxaparin Sodium (Lovenox) 40 mg SC DAILY SAMI; Protocol Last Admin: 02/22/18 10:14 Dose: 40 mg Ceftriaxone Sodium (Rocephin 1 Gram Ivpb) 1 gm in 100 mls @ 100 mls/hr IVPB DAILY SAMI; Protocol Last Admin: 02/22/18 10:14 Dose: 100 mls/hr Ibuprofen (Motrin Tab) 400 mg PO Q6H PRN PRN Reason: Pain, moderate (4-7) Last Admin: 02/21/18 19:57 Dose: 400 mg Methylprednisolone (Solu-Medrol) 40 mg IVP Q12 SAMI Last Admin: 02/22/18 21:39 Dose: 40 mg Metoprolol Tartrate (Lopressor) 25 mg PO BID SAMI Last Admin: 02/22/18 18:19 Dose: 25 mg Oseltamivir Phosphate (Tamiflu Cap) 75 mg PO BID SAMI; Protocol Stop: 02/26/18 12:28 Last Admin: 02/22/18 18:20 Dose: 75 mg Pantoprazole Sodium (Protonix Ec Tab) 40 mg PO 0600 SAMI Last Admin: 02/23/18 05:22 Dose: 40 mg - Labs Labs: 02/23/18 06:00 02/22/18 06:00 PT 12.3 SECONDS (9.4-12.5) 02/21/18 10:00 INR 1.07 02/21/18 10:00 APTT 26.3 Seconds (25.1-36.5) 02/21/18 10:00 - Constitutional Appears: Non-toxic, No Acute Distress - Head Exam Head Exam: NORMAL INSPECTION, NORMOCEPHALIC - Eye Exam Eye Exam: Normal appearance Pupil Exam: NORMAL ACCOMODATION - ENT Exam ENT Exam: Mucous Membranes Moist, Normal Exam - Respiratory Exam Respiratory Exam: Decreased Breath Sounds, Clear to Ausculation Bilateral, NORMAL BREATHING PATTERN - Cardiovascular Exam Cardiovascular Exam: REGULAR RHYTHM, +S1, +S2 - GI/Abdominal Exam GI & Abdominal Exam: Soft, Normal Bowel Sounds - Extremities Exam Extremities Exam: Full ROM, Normal Capillary Refill - Neurological Exam Neurological Exam: Alert, Awake, Oriented x3 - Psychiatric Exam Psychiatric exam: Normal Affect, Normal Mood - Skin Skin Exam: Dry, Normal Color, Warm Assessment and Plan - Assessment and Plan (Free Text) Assessment: A 37 year old female who came in to the ER due to chest pain substernal pressure worse on coughing and deep breathing, associated with generalized body aches, fever, chills, productive cough of yellow sputum and headache. History of asthma. Denies smoking. Chest X ray-normal, Troponin normal x 3. CT of chest, negative for infiltrate. Rule out myocardial infarction. Rule out congestive heart failure. Rule out flu. Bronchitis. Echo done LVEF 65%, normal chambers, Trace TR RVSP 19 mmHg,no pericardial effusion,no thrombus.Cardiac status stable. Will discontinue telemetry. Stress test as out patient Plan: Echo done LVEF 65%, normal chambers, Trace TR RVSP 19 mmHg, no pericardial effusion,no thrombus. Denies shortness of breath, no distress Cardiac status stable Heart rate controlled Blood pressure controlled Discontinue telemetry Out patient stress test On Doryx 100 mg BID,Rocephin 1 gram daily,Solumedrol 40 mg every 8 hours, Tamiflu 75 mg BID, Lopressor 25 mg BID Continue current treatment Continue current medications Will follow up Plan and treatment discussed with Dr. Espinoza
[2018-02-23 07:19] LABS: BLOOD UREA NITROGEN 10 mg/dL (7-21); CALCIUM 9.6 mg/dL (8.4-10.5); GFR NON-AFRICAN AMERICAN > 60
[2018-02-23] MEDS: Arformoterol 15 mcg/2 ml Inh Sol IH SCH (08:17)
[2018-02-23] MEDS: Budesonide 0.5 mg/2 ml Inhal Susp UD IH SCH (08:17)
[2018-02-23] MEDS: Acetylcysteine 20% Inhal Soln (4ml) IH SCH (08:21)
--- NOTE | 2018-02-23 08:21 | PN ---
DATE: 02/22/2018 SUBJECTIVE: The patient is 37-year-old female. The patient is seen and examined. Just came back from echocardiography. No fever. No chills. No headache or dizziness. No nausea, vomiting, or diarrhea. No swelling of the leg. Feeling better for the shortness of breath and coughing. PHYSICAL EXAMINATION: VITAL SIGNS: Blood pressure 120/70, pulse 70, temperature 98.2, and oxygenation 98%. HEENT: Head, normocephalic and atraumatic. Eyes, PERRLA. Extraocular muscles intact. Conjunctivae clear. Nose patent. Mucous membranes moist. NECK: Supple. No carotid bruit, JVD, or thyromegaly. CHEST: Bilaterally symmetrical. HEART: S1 and S2 positive. LUNGS: No audible wheezing. Few rhonchi bilaterally. ABDOMEN: Soft. Bowel sounds present. No organomegaly. EXTREMITIES: No edema. No cyanosis. NEUROLOGIC: The patient is awake, alert, and follows simple commands. MEDICATIONS: Mucomyst, Brovana, Pulmicort, Rocephin, doxycycline, Lovenox, Motrin, Medrol Dosepak, and Tamiflu. LABORATORY DATA: White blood cells 15.9, hemoglobin 11.8, hematocrit 35.7, platelets 372. Sodium 139, potassium 4.2, BUN 10, creatinine 0.6. AST 23, ALT 22. Triglyceride 42, cholesterol 155. ASSESSMENT AND PLAN: The patient is a 37-year-old female came with exacerbation of chronic obstructive lung disease, probably triggered by viral illness, has small lung nodules, went for echocardiography today. Gastric and deep venous thrombosis prophylaxis provided. Continue antibiotics. Getting a tapering dose of Solu-Medrol. Continue his bronchodilators. Sleep apnea, avoid sedatives. Check electrocardiogram and CT of the lungs received by nd, and echocardiogram is studied by Dr. Edwin Espinoza, showed normal-size chambers, ejection fraction is 65%, trace tricuspid regurgitation, inferior vena cava normal size. There is no pericardial effusion. No vegetation or thrombus noted. Repeat laboratories. We will follow up. Rocío Mathur MD [facility] # [id number]
[2018-02-23] MEDS: Enoxaparin 40 mg Syringe SC SCH (09:06)
[2018-02-23] MEDS: cefTRIAXone 1 gm 1 GM/100 ML BAG IVPB SCH (09:07)
[2018-02-23] MEDS: MethylPREDNISolone 40 mg Vial IVP SCH (09:07)
[2018-02-23] MEDS ORDERED: Cefpodoxime (Vantin) 200 mg Tab PO SCH (10:00)
--- NOTE | 2018-02-23 11:00 | CP.PCM.PN ---
Subjective - Date & Time of Evaluation Date of Evaluation: 02/23/18 Time of Evaluation: 10:10 - Subjective Subjective: Patient is feeling much better, cough improved, no chest pain currently, no nausea, no diarrhea, no more body aches. No fevers overnight. Objective - Vital Signs/Intake and Output Vital Signs (last 24 hours): Temp Pulse Resp BP Pulse Ox 97.6 F 73 18 118/77 97 02/22/18 08:40 02/22/18 08:40 02/22/18 08:40 02/22/18 08:40 02/22/18 08:40 Intake and Output: 02/22/18 02/22/18 06:59 18:59 Intake Total 780 Balance 780 - Medications Medications: Current Medications Acetylcysteine (Acetylcysteine 20%) 4 ml IH BIDRESP SAMI Last Admin: 02/22/18 09:10 Dose: 4 ml Arformoterol Tartrate (Brovana) 15 mcg IH [id number] SAMI Last Admin: 02/22/18 09:10 Dose: 15 mcg Budesonide (Pulmicort Respules) 0.5 mg IH [id number] SAMI Last Admin: 02/22/18 09:10 Dose: 0.5 mg Doxycycline Hyclate (Doryx) 100 mg PO Q12 SAMI; Protocol Last Admin: 02/22/18 10:14 Dose: 100 mg Enoxaparin Sodium (Lovenox) 40 mg SC DAILY SAMI; Protocol Last Admin: 02/22/18 10:14 Dose: 40 mg Ceftriaxone Sodium (Rocephin 1 Gram Ivpb) 1 gm in 100 mls @ 100 mls/hr IVPB DAILY [facility]I; Protocol Last Admin: 02/22/18 10:14 Dose: 100 mls/hr Ibuprofen (Motrin Tab) 400 mg PO Q6H PRN PRN Reason: Pain, moderate (4-7) Last Admin: 02/21/18 19:57 Dose: 400 mg Methylprednisolone (Solu-Medrol) 40 mg IVP Q12 [facility] Metoprolol Tartrate (Lopressor) 25 mg PO BID SAMI Oseltamivir Phosphate (Tamiflu Cap) 75 mg PO BID SAMI; Protocol Stop: 02/26/18 12:28 Last Admin: 02/22/18 10:15 Dose: 75 mg Pantoprazole Sodium (Protonix Ec Tab) 40 mg PO 0600 [facility]I Last Admin: 02/22/18 06:04 Dose: 40 mg - Labs Labs: 02/22/18 06:00 02/22/18 06:00 PT 12.3 SECONDS (9.4-12.5) 02/21/18 10:00 INR 1.07 02/21/18 10:00 APTT 26.3 Seconds (25.1-36.5) 02/21/18 10:00 - Constitutional Appears: Chronically Ill - Head Exam Head Exam: NORMAL INSPECTION - Respiratory Exam Respiratory Exam: Decreased Breath Sounds - Cardiovascular Exam Cardiovascular Exam: +S1, +S2 - GI/Abdominal Exam GI & Abdominal Exam: Soft. absent: Tenderness Assessment and Plan - Assessment and Plan (Free Text) Plan: Assessment Systemic inflammatory response syndrome, consider due to systemic viral illness R/O Influenza on top of acute bronchitis Plan continue Tamiflu day 2 for 5 days as well as Rocephin and Doxycycline day 2 - can switch to PO Vantin and Doxycycline to complete the 5-7 day course - cultures have been negative reviewed CT chest which does not show infiltrates - it shows a small pulmonary nodule - PMD to follow this up discussed with patient that she needs to follow up with PMD WBC count continues to be elevated probably because of systemic steroid use
--- NOTE | 2018-02-23 11:46 | PN ---
DATE: 02/23/2018 PULMONARY PROGRESS NOTE REFERRING PHYSICIAN: Dr. Rocío Mathur. SUBJECTIVE: The patient is sitting up at bedside. No acute distress. No overnight events reported. The patient reports feeling much better this morning. Denies shortness of breath. Reports having some occasional coughing. No headache, rhinitis, chest pain, abdominal pain, nausea, vomiting, diarrhea, leg pain, or leg swelling reported. OBJECTIVE: GENERAL: No acute distress. VITAL SIGNS: Blood pressure 110/60, pulse 78, temperature 98, and oxygen saturation 96% on room air. HEENT: Moist mucous membranes. Crowded airway. Mallampati score of 4. LUNGS: Clear bilaterally. No audible wheezing. CARDIOVASCULAR: S1 and S2 audible. ABDOMEN: Soft and nontender. No distention. No organomegaly. EXTREMITIES: No bilateral lower extremity edema. NEUROLOGIC: Awake, alert, and verbal. Follows commands. MEDICATIONS: Reviewed. Mucomyst 4 mL inhalation twice a day, Brovana 15 mcg every 12 hours, Pulmicort 0.5 mg every 12 hours, Vantin 200 mg p.o. every 12 hours, doxycycline 100 mg every 12 hours, Lovenox 40 mg subcutaneous daily, Motrin 400 mg every 6 hours p.r.n., Solu-Medrol 40 mg IV push every 12 hours, Lopressor 25 mg twice a day, Tamiflu 75 mg twice a day, and Protonix 40 mg daily. LABORATORY DATA: Reviewed. WBC 23.7, RBC 4.31, hemoglobin 11.3, hematocrit 34.2, and platelets 444. Sodium 141, potassium 3.9, chloride 106, carbon dioxide 26, anion gap 13, BUN 10, creatinine 0.6, GFR greater than 60, random glucose 175, calcium 9.6 and procalcitonin 0.05. Echocardiogram shows normal chamber size, ejection fraction 65%, there is trace tricuspid regurgitation, RVSP 19, IVC is normal in size and collapse is greater than 50% with inspiration. No pericardial effusion. No vegetation or thrombus noted. IMPRESSION AND PLAN: Exacerbation of chronic obstructive lung disease and small lung nodule. Gastric prophylaxis, deep venous thrombosis prophylaxis. Case discussed with Dr. Mathur. The patient for possible discharge home, pending Infectious Disease. Sleep apnea precaution, head of bed elevated at 45 degrees. We will discontinue Solu-Medrol and place the patient on tapering dose of prednisone. We recommend the patient have attended sleep study and full PFT as outpatient. This patient was seen and examined with Dr. Agustin. Discussed assessment and plan as described above. Thank you for this consult. We will follow with you. Lisandro Zuniga APN Edwin Agustin MD
--- NOTE | 2018-02-23 12:09 | PN ---
DATE: 02/23/2018 REASON FOR CONSULTATION: Followup; cardiac evaluation for chest pain, atypical; history of asthma; history of possibly flu. SUBJECTIVE: The patient denied any chest pain, shortness of breath, or any palpitation. PHYSICAL EXAMINATION: GENERAL: Not in apparent distress. So far no evidence of acute [place]. The patient is in isolation for possible flu. The patient had echocardiography done yesterday that shows normal chambers, ejection fraction 55%, trace tricuspid regurgitation, RV systolic pressure is 69. For risk of stratification, we will schedule stress test as an outpatient. The patient has been scheduled for a stress test on 03/28/2018. So far CVS status is stable. Continue current treatment. Continue treatment for urinary tract infection. We will follow with you. Thank you Dr. Mathur for providing us the opportunity in taking care of the patient, Isa Qiu. So far no evidence of acute [place]. No evidence of ischemic chest pain, but risk of stratification was suggested as an outpatient. Edwin Espinoza MD
== END 2018-02-23 15:54 | disposition home or self-care (01) | DRG 191 ==
LOC: ED 09:39 → ERH 11:57 → 3RSO 14:15
PROVIDERS: ADMIT Internal Medicine; ATTEND Internal Medicine
DX: J44.1 Chronic obstructive pulmonary disease with (acute) exacerbation (principal); M48.54XA Collapsed vertebra, not elsewhere classified, thoracic region, initial encounter for fracture; R65.10 Systemic inflammatory response syndrome (SIRS) of non-infectious origin without acute organ dysfunction; N39.0 Urinary tract infection, site not specified; B34.9 Viral infection, unspecified; D57.3 Sickle-cell trait; E87.6 Hypokalemia; G47.30 Sleep apnea, unspecified; J31.0 Chronic rhinitis; Z87.09 Personal history of other diseases of the respiratory system; R91.1 Solitary pulmonary nodule; D72.829 Elevated white blood cell count, unspecified; D64.9 Anemia, unspecified; R73.9 Hyperglycemia, unspecified

== ENCOUNTER 2018-03-28 06:46 | Outpatient (CLI) | payer BC | END 2018-03-28 06:47 | disposition home or self-care (01) | LOC: CARDIO 06:46 | DX: R07.9 Chest pain, unspecified (principal); J45.909 Unspecified asthma, uncomplicated ==

== ENCOUNTER 2018-04-25 02:56 | Emergency (ER) | payer BC ==
[2018-04-25 02:56] VITALS: BMI 27.8
[2018-04-25 03:12] VITALS: RESP 18; TEMP 98; O2SAT 100
--- NOTE | 2018-04-25 03:37 | ED PDOC ---
Arrival/HPI - General Chief Complaint: Back Pain Time Seen by Provider: 04/25/18 03:22 Historian: Patient - History of Present Illness Narrative History of Present Illness (Text): 04/25/18 03:31 Isa Qiu is a 38 year old female, with no significant past medical history, who presents to the Emergency department complaining of back pain. Patient states she has been experiencing sharp right sided flank pain radiating across h er back for the past week. Patient states she has been taking Tylenol for pain with no significant relief. Patient denies any fever, chills, chest pain, shortness of breath, nausea, vomiting, diarrhea, neck pain, headache, dizziness, or any other complaints. Symptom Onset: Gradual Symptom Course: Unchanged Activities at Onset: Light Context: Home Past Medical History - Provider Review Nursing Documentation Reviewed: Yes - Infectious Disease Hx of Infectious Diseases: None - Cardiac Hx Cardiac Disorders: No - Pulmonary Hx Asthma: Yes - Neurological Hx Neurological Disorder: No - HEENT Hx HEENT Disorder: No - Renal Hx Renal Disorder: No - Endocrine/Metabolic Hx Endocrine Disorders: No - Hematological/Oncological Hx Blood Disorders: Yes - Integumentary Hx Dermatological Disorder: No - Musculoskeletal/Rheumatological Hx Musculoskeletal Disorders: No - Gastrointestinal Hx Gastrointestinal Disorders: No - Genitourinary/Gynecological Hx Reproductive Disorders: Yes Other/Comment: HX: CERVICAL DYSPLAGIA - Psychiatric Hx Psychophysiologic Disorder: No Hx Substance Use: No - Surgical History Other/Comment: cervix - Anesthesia Hx Anesthesia: No Family/Social History - Physician Review Nursing Documentation Reviewed: Yes Family/Social History: Unknown Family HX Smoking Status: Never Smoked Hx Alcohol Use: No Hx Substance Use: No Allergies/Home Meds Allergies/Adverse Reactions: Allergies No Known Allergies Allergy (Verified 02/21/18 13:04) Review of Systems - Physician Review All systems were reviewed & negative as marked: Yes - Review of Systems Constitutional: Normal. absent: Fevers Eyes: Normal ENT: Normal Respiratory: Normal. absent: SOB, Cough Cardiovascular: Normal. absent: Chest Pain Gastrointestinal: Normal. absent: Abdominal Pain, Diarrhea, Nausea, Vomiting Genitourinary Female: absent: Dysuria, Frequency, Hematuria Musculoskeletal: Back Pain. absent: Neck Pain Skin: Normal. absent: Rash Neurological: Normal, Headache Endocrine: Normal Hemo/Lymphatic: Normal Psychiatric: Normal Physical Exam Vital Signs Reviewed: Yes Vital Signs Temp Pulse Resp BP Pulse Ox 02/27/19 03:11 98.0 F 90 18 136/78 100 Temperature: Afebrile Blood Pressure: Normal Pulse: Regular Respiratory Rate: Normal Appearance: Positive for: Well-Appearing, Non-Toxic, Comfortable Pain Distress: None Mental Status: Positive for: Alert and Oriented X 3 - Systems Exam Head: Present: Atraumatic, Normocephalic Pupils: Present: PERRL Extroacular Muscles: Present: EOMI Conjunctiva: Present: Normal Mouth: Present: Moist Mucous Membranes Neck: Present: Normal Range of Motion Respiratory/Chest: Present: Clear to Auscultation, Good Air Exchange. No: Respiratory Distress, Accessory Muscle Use Cardiovascular: Present: Regular Rate and Rhythm, Normal S1, S2. No: Murmurs Abdomen: No: Tenderness, Distention, Peritoneal Signs Back: Present: Normal Inspection Upper Extremity: Present: Normal Inspection. No: Cyanosis, Edema Lower Extremity: Present: Normal Inspection. No: Edema Neurological: Present: GCS=15, CN II-XII Intact, Speech Normal Skin: Present: Warm, Dry, Normal Color. No: Rashes Psychiatric: Present: Alert, Oriented x 3, Normal Insight, Normal Concentration Medical Decision Making ED Course and Treatment: 04/25/18 03:31 Impression: 38 year old female complaining of right flank pain. Plan: -- Labs -- Urinalysis -- Toradol -- Reassess and disposition Prior Visits: Notes and results from previous visits were reviewed. Progress Notes: 04/25/18 05:12 CT Abdomen and Pelvis: Normal unenhanced liver. Normal gallbladder and extrahepatic biliary system. Normal unenhanced spleen. Normal pancreas. Normal bilateral adrenal glands. Normal size of the right kidney. There is no right renal mass. There are no right renal calculi. There is no right hydronephrosis. Normal visualized right ureter. Mild fullness of the right collecting system. Normal size of the left kidney. There is no left renal mass. There are no left renal calculi. There is no left hydronephrosis. Normal visualized left ureter. Normal visualized stomach. Normal small intestine. Uncomplicated diverticulosis of the colon. The appendix is visualized and appears normal. There is no demonstrated peritoneal fluid. Normal abdominal aorta. Normal inferior vena cava. Normal retroperitoneum. Mild diffuse thickening of the urinary bladder. There is no pelvic mass lesion or lymphadenopathy. There is no pelvic fluid. Normal abdominal wall. Normal osseous structures. IMPRESSION: Mildly thickened bladder. Underdistention versus mild cystitis. Mild fullness of right collecting system, possibly ascending urinary tract infection. Mild constipation. Electronically signed on Apr 25, 2018 5:07:35 AM EST by: Aayush Watkins M.D., Certified by [facility], MSK, Neuroradiology 04/25/18 05:38 On re-evaluation, patient feels better and is in no acute distress. I have discussed the results and plan with the patient, who expresses understanding. Patient in agreement with plan to be discharged home. Patient is stable for discharge. Patient was instructed to follow up with physician or return if symptoms worsen or new concerning symptoms arise. - Lab Interpretations I have reviewed the lab results: Yes - RAD Interpretation Superintendent Greens: Radiologist - Scribe Statement The provider has reviewed the documentation as recorded by the Scribe Fiona Hernandez Provider Scribe Attestation: All medical record entries made by the Scribe were at my direction and personally dictated by me. I have reviewed the chart and agree that the record accurately reflects my personal performance of the history, physical exam, medical decision making, and the department course for this patient. I have also personally directed, reviewed, and agree with the discharge instructions and disposition. Disposition/Present on Arrival - Present on Arrival Any Indicators Present on Arrival: No History of DVT/PE: No History of Uncontrolled Diabetes: No Urinary Catheter: No History of Decub. Ulcer: No History Surgical Site Infection Following: None - Disposition Have Diagnosis and Disposition been Completed?: Yes Diagnosis: Right flank pain Disposition: HOME/ ROUTINE Disposition Time: 05:38 Condition: IMPROVED Discharge Instructions (ExitCare): Flank Pain Prescriptions: Cephalexin [Keflex] 500 mg PO BID #14 capsule Referrals: Rocío Mathur MD [Primary Care Provider] - Follow up with primary Forms: [employer] (Swazi)
[2018-04-25 03:58] LABS: URINE BILIRUBIN NEGATIVE (NEGATIVE); URINE BLOOD MODERATE (NEGATIVE); URINE GLUCOSE (UA) NEGATIVE (NEGATIVE); URINE LEUKOCYTE ESTERASE NEGATIVE Leu/uL (NEGATIVE); URINE PROTEIN NEGATIVE mg/dL (<30 mg/dL); URINE UROBILINOGEN 0.2 E.U./dL (<1 E.U./dL)
[2018-04-25 03:59] LABS: URINE APPEARANCE CLEAR (CLEAR); URINE COLOR YELLOW (YELLOW)
[2018-04-25 04:12] LABS: URINE BACTERIA FEW /hpf; URINE EPITHELIAL CELLS 0 - 2 /hpf (0-5)
[2018-04-25 04:16] LABS: BASO # 0.04 K/mm3 (0.0-2.0); BASO % 0.4 % (0.0-3.0); EOS # 0.2 (0.0-0.7); EOS % 1.6 % (1.5-5.0); HEMOGLOBIN 11.7 g/dL (12.0-16.0); LYMPH # 3.3 (1.2-3.4); LYMPH % 33.1 % (22.0-35.0); MEAN CELL VOLUME 79.5 fl (80.0-105.0); MEAN CORPUSCULAR HEMOGLOBIN 26.7 pg (25.0-35.0); MEAN CORPUSCULAR HGB CONC 33.6 g/dl (31.0-37.0); MEAN PLATELET VOLUME 9.8 fl (7.0-11.0); MONO # 0.5 (0.1-0.6); RBC 4.38 10^6/uL (3.5-6.1); RED CELL DISTRIBUTION WIDTH 14.3 % (11.5-14.5)
[2018-04-25 05:06] LABS: ALB/GLOB RATIO 1.3 (1.1-1.8); ALBUMIN 4.4 g/dL (3.0-4.8); ALT/SGPT 7 U/L (7-56); AST/SGOT 25 U/L (14-36); BLOOD UREA NITROGEN 12 mg/dL (7-21); CALCIUM 9.1 mg/dL (8.4-10.5); GFR NON-AFRICAN AMERICAN > 60
[2018-04-25 05:50] VITALS: BP 134/75; PULSE 85
--- NOTE | 2018-04-25 08:59 | CT ---
Date of service: 04/25/2018 PROCEDURE: CT Abdomen and Pelvis without intravenous contrast HISTORY: rt flank pain COMPARISON: None. TECHNIQUE: Helical CT of the abdomen and pelvis was performed without oral or intravenous contrast as per referring physician request. Coronal and sagittal reformats were generated.. Contrast dose: None Radiation dose: Total exam DLP = 414.85 mGy-cm. This CT exam was performed using one or more of the following dose reduction techniques: Automated exposure control, adjustment of the mA and/or kV according to patient size, and/or use of iterative reconstruction technique. FINDINGS: LOWER THORAX: Small hiatal hernia encountered. LIVER: Unremarkable. No gross lesion or ductal dilatation. GALLBLADDER AND BILE DUCTS: Unremarkable. PANCREAS: Unremarkable. No gross lesion or ductal dilatation. SPLEEN: Unremarkable. ADRENALS: Unremarkable. No mass. KIDNEYS AND URETERS: No radiodense urolithiasis, perinephric fluid collection or obstructive uropathy is appreciate bilaterally. The bilateral ureters appear normal caliber overall. VASCULATURE: Unremarkable. No aortic aneurysm. No aortic atherosclerotic calcification or mural plaque present. BOWEL: Stomach is collapsed. There is no bowel obstruction appreciated. Rectum is collapsed and mural thickening is difficult to evaluate. Clinically correlate nevertheless. No pericolic or perienteric reaction appreciated. APPENDIX: Unremarkable. Normal appendix. PERITONEUM: Unremarkable. No free fluid. No free air. LYMPH NODES: Shotty central mesenteric lymph nodes are identified as well as the periaortic space BLADDER: Unremarkable. REPRODUCTIVE: Unremarkable. BONES: No acute fracture. OTHER FINDINGS: None. IMPRESSION: 1. No definite obstructive uropathy, radiodense urolithiasis or perinephric reaction bilaterally. Contrast CT can be utilized for further characterization of the genitourinary tract if clinically warranted. 2. Shotty periaortic and central mesenteric lymph nodes are identified in a nonspecific pattern. No pericecal lymphadenopathy appreciated. 3. Evaluation of the rectum is limited due to collapse. No bowel obstruction or local bowel mesenteric reaction appreciated throughout the abdomen. Preliminary report provided by Shameka, 04/25/2017, 5:07 a.m..
== END 2018-04-25 05:49 | disposition home or self-care (01) ==
LOC: ED 02:56
DX: R10.9 Unspecified abdominal pain (principal)
CPT/HCPCS: 74176; 80053; 81001; 81025; 85025; 96374; 99283; J1885